=== PATIENT | female | born 1970 | race Caucasian/White ===

== ENCOUNTER 2020-03-18 16:41 | Inpatient (IN) | payer OTHER ==
[~2020-03-18] VITALS: Ht 160 cm; Wt 69.9 kg
--- NOTE | ~2020-03-18 | OP ---
[facility] [address] [place] [address] OPERATIVE REPORT Name: BINA AGUILERA Room: [address] IN M.R.#: [id number] Admission: 03/19/20 Attend Phys: Ninfa Booth MD Discharge: Date of : 66 Report #: [id number] THIS REPORT FOR: //name// cc: Campos Muñoz Vincent R. DO ~ THIS REPORT FOR: //name// CC: Ninfa Muñoz DATE OF SERVICE: 03/20/2020 PREOPERATIVE DIAGNOSIS: Acute cholecystitis. POSTOPERATIVE DIAGNOSIS: Acute cholecystitis. OPERATION: Laparoscopic cholecystectomy. SURGEON: Pk Pratt MD ANESTHESIA: General. ESTIMATED BLOOD LOSS: Minimal. SPECIMEN: Gallbladder. DESCRIPTION OF PROCEDURE: After informed consent was obtained, the patient was brought to the operating room and placed supine. SCDs were placed and working, preoperative antibiotics were administered, general anesthesia was induced. The abdomen was prepped and draped in the usual sterile fashion. A 10 mm incision was made above the umbilicus. Fascia was incised and a trocar was placed. Pneumoperitoneum was established. Three right upper quadrant 5 mm ports were placed. Gallbladder was grasped at the fundus and retracted cephalad. Infundibulum was grasped and retracted laterally. I dissected out the cystic duct and the cystic artery. Cystic duct and artery were fully identified. The cystic plate was fully identified. Cystic duct and artery were clipped and ligated, leaving 3 clips on the remaining duct and one on the remaining artery. Gallbladder was then taken off the liver bed with electrocautery. It was placed into an Endopouch and removed. Fascia was then closed with a [id number] 0 Vicryl. Skin was closed with 4-0 Monocryl. Incisions were sealed with Dermabond. COMPLICATIONS: [place] [address] OPERATIVE REPORT Name: BINA AGUILERA Room: [address]#: [id number] Admission: 03/19/20 Attend Phys: Ninfa Booth MD Discharge: Date of : 66 Report #: [id number] DISPOSITION: The patient was taken to recovery in satisfactory condition. By: [id number] Pratt MD /nt
[~2020-03-18 16:41] MED LIST: VENTOLIN HFA 1818 GM INH
[2020-03-18 16:48] VITALS: BP 118/85
[2020-03-18 17:43] LABS: ABSOLUTE BASOPHILS 0.1 thou/uL (0.0-0.2); ABSOLUTE EOSINOPHILS 0.3 thou/uL (0.0-0.7); ABSOLUTE LYMPHOCYTES 2.8 thou/uL (0.8-5.3); ABSOLUTE MONOCYTES 0.6 thou/uL (0.0-1.2); ABSOLUTE NEUTROPHILS 5.8 thou/uL (1.6-8.1); BASOPHILS 1.2 %; EOSINOPHILS 3.6 %; HEMATOCRIT 42.9 % (37.0-47.0); HEMOGLOBIN 14.7 gm/dL (12.0-15.0); LYMPHOCYTES 29.1 %; MCH 30.2 pg (26.0-34.0); MCHC 34.3 g/dL (28.0-37.0); NUCLEATED RBCS 0 /100WBC; PLATELET COUNT* 236 thou/uL (150-400); POLYS 60.1 %; RBC 4.88 mil/uL (4.20-5.00); RDW-CV 13.2 % (10.5-14.5); WBC 9.6 thou/uL (4.0-11.0)
[2020-03-18 17:46] LABS: URINE BILIRUBIN NEGATIVE (Negative); URINE BLOOD NEGATIVE (Negative); URINE CLARITY CLEAR; URINE COLOR YELLOW; URINE GLUCOSE-RANDOM NEGATIVE (Negative); URINE KETONES NEGATIVE (Negative); URINE LEUKOCYTES-REFLEX NEGATIVE (Negative); URINE NITRITE-REFLEX NEGATIVE (Negative); URINE PROTEIN NEGATIVE (Negative); URINE SPECIFIC GRAVITY >= 1.030 (1.005-1.030); URINE UROBILINOGEN 0.2 E.U./dl (0.2-1.0)
[2020-03-18 17:57] LABS: CALCIUM 8.7 mg/dL (8.5-10.1); CREATININE 1.1 mg/dL (0.6-1.3); POTASSIUM 4.2 mmol/L (3.5-5.1)
[2020-03-18 18:02] LABS: ALBUMIN 3.8 g/dL (3.4-5.0); TOTAL BILIRUBIN 0.4 mg/dL (<0.1-1.0); TOTAL PROTEIN 8.1 g/dL (6.4-8.2)
[2020-03-18 23:10] VITALS: BP 103/51
[2020-03-18 23:30] VITALS: BP 111/62
[2020-03-19] MEDS ORDERED: OMEPRAZOLE20 M2 PO (08:05)
[2020-03-19 08:16] VITALS: BP 105/66
[2020-03-19 09:11] LABS: ABSOLUTE BASOPHILS 0.1 thou/uL (0.0-0.2); ABSOLUTE EOSINOPHILS 0.3 thou/uL (0.0-0.7); ABSOLUTE LYMPHOCYTES 3.3 thou/uL (0.8-5.3); ABSOLUTE MONOCYTES 0.5 thou/uL (0.0-1.2); ABSOLUTE NEUTROPHILS 3.8 thou/uL (1.6-8.1); BASOPHILS 1.2 %; EOSINOPHILS 4.3 %; HEMATOCRIT 40.4 % (37.0-47.0); HEMOGLOBIN 13.7 gm/dL (12.0-15.0); LYMPHOCYTES 40.8 %; MCHC 33.9 g/dL (28.0-37.0); MCV 88.5 fL (80.0-100.0); MONOCYTES 6.5 %; MPV 8.8 fl. (7.2-11.1); NUCLEATED RBCS 0 /100WBC; PLATELET COUNT* 212 thou/uL (150-400); POLYS 47.2 %; RBC 4.56 mil/uL (4.20-5.00); RDW-CV 13.7 % (10.5-14.5); WBC 8.1 thou/uL (4.0-11.0)
[2020-03-19 09:17] LABS: CALCIUM 8.1 mg/dL (8.5-10.1); MAGNESIUM 1.9 mg/dL (1.8-2.4)
[2020-03-19 16:50] VITALS: BP 117/61
[2020-03-20 13:51] LABS: HEMATOCRIT 39.4 % (37.0-47.0); HEMOGLOBIN 13.5 gm/dL (12.0-15.0); MCHC 34.2 g/dL (28.0-37.0); MCV 87.6 fL (80.0-100.0); MPV 9.3 fl. (7.2-11.1); RBC 4.49 mil/uL (4.20-5.00); RDW-CV 13.3 % (10.5-14.5); WBC 11.8 thou/uL (4.0-11.0)
[2020-03-20 13:54] LABS: CALCIUM 8.4 mg/dL (8.5-10.1); MAGNESIUM 1.8 mg/dL (1.8-2.4); POTASSIUM 4.3 mmol/L (3.5-5.1)
[2020-03-20 15:45] VITALS: BP 100/51
[2020-03-20 20:00] VITALS: BP 102/52
[2020-03-21 00:42] VITALS: BP 97/56
[2020-03-21 07:40] VITALS: BP 119/71
[2020-03-21 11:40] VITALS: BP 119/71
[2020-03-21] MEDS ORDERED: NORCO 5-325 TA1 EAC1 PO (13:54)
--- NOTE | 2020-03-24 12:08 | PATH ---
[facility] [address] [place] [address] PATHOLOGY RPT PROCEDURE Name: JOSELIN VALLE Room: [address] IN M.R.#: [id number] Admission: 03/19/20 Date of : 66 Discharge: 03/21/20 Report #: [id number] Path Case #: [id number] [facility] Accession Number: [id number] . 01 Material submitted: . gallbladder - GALLBLADDER . 01 Clinical history: . Cholecystitis . 02 Diagnosis: Gallbladder: - Chronic and acute cholecystitis with fundal diverticula and cholelithiasis. (VU:jose cruz; 03/21/2020) MBR 03/21/2020 1613 Local . 02 Electronically signed: . Sonny Moy MD, Pathologist NPI- [id number] . 01 Gross description: . The specimen is received in formalin, labeled "Joselin Valle, gallbladder" and consists of an intact pink-corral partially fat encased gallbladder measuring 7.6 x 3.6 x 2.8 cm. The margin is inked. Opening reveals green bile and multiple yellow granular calculi measuring up to 1.6 cm in diameter. The mucosa is green-brown and granular with a wall thickness of 0.1 cm. The fundus has a honeycomb texture with pockets measuring up to 1.0 cm in diameter containing black bile. No gross lesions or lymph nodes are identified. Senior Project Architect sections are submitted in A1-A2 with a section of the honeycomb structure in A2. (NANETTE; 03/20/2020) JFQ/JFManuel 03/20/2020 1714 Local . 02 Pathologist provided ICD-10: K80.12 . 02 CPT . 410661 Specimen Comment: A courtesy copy of this report has been sent to [phone], [phone] Specimen Comment: [phone], Specimen Comment: Report sent to ,DR WILHELM / DR SORIA Performed at: [address] [facility] [address] [id number] MD Martin Padilla MD Phone: [phone] Performed at: 02 [place] [address] PATHOLOGY RPT PROCEDURE Name: JOSELIN VALLE Room: [address] IN M.R.#: [id number] Admission: 03/19/20 Date of : 66 Discharge: 03/21/20 Report #: [id number] Path Case #: [id number] [facility] [address], [place], [place] [id number] MD Sonny Moy MD Phone: [phone]
== END 2020-03-21 15:00 | disposition home or self-care (01) | DRG 419 ==
LOC: M.ERS 16:41 → M.TBA-ER 22:00 → M.3W 23:20
PROVIDERS: Internal Medicine; Personal Emergency Response Attendant; ADMIT Internal Medicine
PROC: 0FT44ZZ Resection of Gallbladder, Percutaneous Endoscopic Approach (ICD-10-PCS; principal; 2020-03-20)
DX: K80.00 Calculus of gallbladder with acute cholecystitis without obstruction (principal); J45.909 Unspecified asthma, uncomplicated; K27.9 Peptic ulcer, site unspecified, unspecified as acute or chronic, without hemorrhage or perforation; K44.9 Diaphragmatic hernia without obstruction or gangrene; K21.0 Gastro-esophageal reflux disease with esophagitis; F17.210 Nicotine dependence, cigarettes, uncomplicated; Z79.899 Other long term (current) drug therapy; Z72.89 Other problems related to lifestyle